=== PATIENT | female | born 1955 | race African-American/Black ===

== ENCOUNTER 2018-09-19 13:24 | Emergency (ER) | payer OTHER ==
[2018-09-19 13:28] VITALS: BP 128/84; PULSE 74; TEMP 98.1; BMI 30.2
--- NOTE | 2018-09-19 13:57 | PDOC ---
History of Present Illness - General Chief Complaint: Injury Stated Complaint: FALL / RT KNEE PAIN Time Seen by Provider: 09/19/18 13:37 - History of Present Illness Initial Comments: 09/19/18 13:56 65-year-old female with a past medical history significant for hypertension presents for evaluation of right knee pain after fall. She states she had bilateral hip replacements and spinal stenosis she's being evaluated for a spinal cord stimulator she has balance problems no dizziness or head injury. She states she fell last week mechanically O after tripping and then again today. She points to the anterior medial lateral aspect of the right knee as the areas of her discomfort. No radiation of symptoms. Past History - Past Medical History Allergies/Adverse Reactions: Allergies Allergy/AdvReac Type Severity Reaction Status Date / Time azithromycin Allergy Hives Verified 09/19/18 13:28 meperidine HCl [From Demerol] Allergy Hives Verified 09/19/18 13:28 Penicillins Allergy Hives Verified 09/19/18 13:28 diazepam [From Valium] AdvReac Mild Itching Verified 09/19/18 13:28 Home Medications: Ambulatory Orders Nifedipine ER [Procardia XL -] 60 mg PO DAILY #0 [id number] 07/31/14 Ibuprofen [Motrin -] 600 mg PO QID #28 tablet 06/11/16 Cardiac Disorders: Yes (mi) COPD: No HTN: Yes Hypercholesterolemia: Yes Other medical history: POOR BALANCE - Surgical History Cardiac Surgery: Yes (ppm) Orthopedic Surgery: Yes (rt hip replacement/rt knee sx) - Family Disease History Family Disease History: Heart Disease: Father - Suicide/Smoking/Psychosocial Hx Smoking Status: Yes Smoking History: Never smoked Have you smoked in the past 12 months: Yes Number of Cigarettes Smoked Daily: 5 Cigars Per Day: 2 'Breaking Loose' booklet given: 07/31/14 Hx Alcohol Use: No Drug/Substance Use Hx: No Substance Use Type: None Hx Substance Use Treatment: No Review of Systems - Review of Systems Musculoskeletal: Yes: Joint Pain *Physical Exam - Vital Signs Last Vital Signs Temp Pulse Resp BP Pulse Ox 98.1 F 74 18 128/84 99 09/19/18 13:25 09/19/18 13:25 09/19/18 13:25 09/19/18 13:25 09/19/18 13:25 - Physical Exam Comments: 09/19/18 13:56 Right knee skin color and temperature are normal. There is swelling. She has diffuse tenderness. Unable to evaluate stability testing secondary to apprehension. Range of motion 0-45 beyond that causes her pain. She is able to lift her heel up off the floor her extensor mechanism is intact. She has no gross sensorimotor deficits. Thighs and calves are soft and nontender. She is neurovascularly intact. Moderate Sedation - Procedure Monitoring Vital Signs: Procedure Monitoring Vital Signs Temperature 98.1 F 09/19/18 13:25 Pulse Rate 74 09/19/18 13:25 Respiratory Rate 18 09/19/18 13:25 Blood Pressure 128/84 09/19/18 13:25 O2 Sat by Pulse Oximetry (%) 99 09/19/18 13:25 ED Treatment Course - RADIOLOGY Radiology Studies Ordered: Category Date Time Status KNEE 3 POS-RIGHT [RAD] Stat Radiology 09/19/18 13:52 Ordered Medical Decision Making - Medical Decision Making 09/19/18 14:17 No indication of acute fracture on radiograph today. This is a knee contusion knee immobilizer weight-bear as tolerated with crutches follow-up with orthopedic surgery. *DC/Admit/Observation/Transfer Diagnosis at time of Disposition: Contusion of right knee - Discharge Dispostion Disposition: HOME Condition at time of disposition: Stable Decision to Admit order: No - Referrals Referrals: Argelia Dick FNP [Primary Care Provider] - Alec De Luna DO [Staff Physician] - - Patient Instructions Printed Discharge Instructions: Contusion Additional Instructions: You may weight-bear as tolerated with knee immobilizer and crutches. Please follow-up with orthopedic surgery in 2-3 days for further evaluation and treatment options. Tylenol as needed and directed for pain. Return to the emergency room for worsening symptoms. Again please come out of the knee immobilizer at home for hygiene, also to move her knee so does not get stiff. When you are walking he should use the knee immobilizer and cane or crutches as tolerated. - Post Discharge Activity
== END 2018-09-19 14:29 | disposition home or self-care (01) ==
LOC: JERFT 13:24
PROC: 2W3QXYZ Immobilization of Right Lower Leg using Other Device (ICD-10-PCS; principal; 2018-09-19)
DX: S80.01XA Contusion of right knee, initial encounter (principal); W18.39XA Other fall on same level, initial encounter; Z91.81 History of falling; Y93.89 Activity, other specified; Y92.89 Other specified places as the place of occurrence of the external cause; Y99.8 Other external cause status; R26.89 Other abnormalities of gait and mobility; I25.10 Atherosclerotic heart disease of native coronary artery without angina pectoris; E78.00 Pure hypercholesterolemia, unspecified; I10 Essential (primary) hypertension; I25.2 Old myocardial infarction; Z95.0 Presence of cardiac pacemaker; Z96.641 Presence of right artificial hip joint
CPT/HCPCS: 29530; 73562-TC-RT-FY; 99281-25

== ENCOUNTER 2019-08-11 08:19 | Emergency (ER) | payer OTHER ==
[2019-08-11 08:34] VITALS: BMI 29.9
[2019-08-11] MEDS ORDERED: KETOROLAC TROMETHAMINE 30 MG/1 ML VIAL IM ONE (09:31)
[2019-08-11] MEDS ORDERED: KETOROLAC TROMETHAMINE 30 MG/1 ML VIAL ONE (09:34)
--- NOTE | 2019-08-11 09:47 | PDOC ---
History of Present Illness - General Chief Complaint: Injury Stated Complaint: FALL/LOWER BACK PAIN Time Seen by Provider: 08/11/19 09:12 History Source: Patient Exam Limitations: Clinical Condition - History of Present Illness Initial Comments: 08/11/19 09:43 Patient with a history of cardiomyopathy on pacemaker, bilateral hip replacement with left hip replaced 2 years ago right hip 10 years ago with complaint of multiple falls since hip replacement being followed up by neurology and reported receiving trigger point injections for pain presented with complaint of worsening back pain status post fall yesterday. Denies hitting head or loss of consciousness from fall. Patient reported has not been using cane to walk even though she has been feeling imbalance with walking due to cane being too big for her. Patient reported she wanted a different referral to neurology as Dr. Luciano is not doing anything for her for her chronic pain. Denies saddle paresthesia, urinary or fecal incontinence. Patient report has been on Motrin for the past 2 years for chronic pain and starting to get gastritis from it. Patient reported she was told by neurologist Dr. Luciano that she will need back surgery but has not made an arrangement for her for the surgery. Denies any other symptoms Occurred: reports: yesterday Past History - Past Medical History Allergies/Adverse Reactions: Allergies Allergy/AdvReac Type Severity Reaction Status Date / Time azithromycin Allergy Hives Verified 08/11/19 08:28 meperidine HCl [From Demerol] Allergy Hives Verified 08/11/19 08:28 Penicillins Allergy Hives Verified 08/11/19 08:28 diazepam [From Valium] AdvReac Mild Itching Verified 08/11/19 08:28 Home Medications: Ambulatory Orders Ibuprofen [Motrin -] 600 mg PO QID #28 tablet 06/11/16 Cane 1 each MC DAILY #1 each 08/11/19 Lidocaine 5% Patch [Lidoderm -] 1 patch TP DAILY #7 patch 08/11/19 Nifedipine ER [Procardia XL -] 30 mg PO DAILY 08/11/19 Cardiac Disorders: Yes (mi) COPD: No HTN: Yes Hypercholesterolemia: Yes - Surgical History Cardiac Surgery: Yes (ppm) Neurologic Surgery: No (spinal nerve damage) Orthopedic Surgery: Yes (rt hip replacement/rt knee sx) - Psycho Social/Smoking Cessation Hx Smoking Status: Yes Smoking History: Never smoked Have you smoked in the past 12 months: Yes Number of Cigarettes Smoked Daily: 5 Cigars Per Day: 2 'Breaking Loose' booklet given: 07/31/14 Hx Alcohol Use: No Drug/Substance Use Hx: No Substance Use Type: None Hx Substance Use Treatment: No Review of Systems - Review of Systems Able to Perform ROS?: Yes Is the patient limited Turkmen proficient: No Constitutional: No: Chills, Fever, Malaise HEENTM: No: Symptoms Reported, See HPI, Eye Pain, Blurred Vision, Tearing, Recent change in vision, Double Vision, Cataracts, Ear Pain, Ocular Prothesis, Ear Discharge, Nose Pain, Nose Congestion, Tinnitus, Nose Bleeding, Hearing Loss , Throat Pain, Throat Swelling, Mouth Pain, Dental Problems, Difficulty Swallowing, Mouth Swelling, Other Respiratory: No: Symptoms reported, See HPI, Cough, Orthopnea, Shortness of Breath, SOB with Exertion, SOB at Rest, Stridor, Wheezing, Productive cough, Hemoptysis, Other Cardiac (ROS): No: Symptoms Reported, See HPI, Chest Pain, Edema, Irregular Heart Rate, Lightheadedness, Palpitations, Syncope, Chest Tightness, Other ABD/GI: No: Symptoms Reported : No: Symptoms Reported, Burning, Discharge, Frequency, Hematuria, Urgency Musculoskeletal: Yes: Symptoms Reported, See HPI, Back Pain, Joint Pain (pelvic pain). No: Gout, Joint Swelling, Muscle Pain, Muscle Weakness, Neck Pain, Joint Stiffness, Other Integumentary: No: Symptoms Reported, Bruising Neurological: No: Symptoms reported, See HPI, Numbness, Paresthesia All Other Systems: Reviewed and Negative *Physical Exam - Vital Signs Last Vital Signs Temp Pulse Resp BP Pulse Ox 98.4 F 61 20 174/135 H 98 08/11/19 08:31 08/11/19 08:31 08/11/19 08:31 08/11/19 08:31 08/11/19 08:31 - Physical Exam 08/11/19 10:00 GENERAL: Well developed, well nourished. Awake and alert in moderate acute distress. CARDIOVASCULAR: Regular rate and rhythm. No murmurs, rubs, or gallops. PULMONARY: No evidence of respiratory distress. Lungs clear to auscultation bilaterally. No wheezing, rales or rhonchi. MUSCULOSKELETAL : Moderate tenderness to lower lumbosacral spine of L3-S2 on bilateral sides. Mild midline tenderness. No radiculopathy. No bony deformities EXTREMITIES: No cyanosis. No clubbing. No edema. No calf tenderness. SKIN: Warm and dry. Normal capillary refill. No bruising or ecchymosis. NEUROLOGICAL: Alert, awake, appropriate. No motor deficits in the lower extremities. Gait is normal without ataxia. PSYCHIATRIC: Cooperative. Good eye contact. Appropriate mood and affect. General Appearance: Yes: Nourished, Appropriately Dressed, Apparent Distress, Moderate Distress ED Treatment Course - RADIOLOGY Radiology Studies Ordered: Category Date Time Status LUMBAR SPINE CT W/O CONTRAST [CT] Stat CT Scan 08/11/19 09:[address] WITHOUT CONTRAST [CT] Stat CT Scan 08/11/19 09:32 Ordered Medical Decision Making - Medical Decision Making 08/11/19 09:45 Patient with a history of cardiomyopathy on pacemaker, bilateral hip replacement with left hip replaced 2 years ago right hip 10 years ago with complaint of multiple falls since hip replacement being followed up by neurology and reported receiving trigger point injections for pain presented with complaint of worsening back pain status post fall yesterday. Patient reported has not been using cane to walk even though she has been feeling imbalance with walking due to cane being too big for her. Patient reported she wanted a different referral to neurology as Dr. Luciano is not doing anything for her for her chronic pain. Denies saddle paresthesia, urinary or fecal incontinence. Patient report has been on Motrin for the past 2 years for chronic pain and starting to get gastritis from it. Patient reported she was told by neurologist Dr. Luciano that she will need back surgery but has not made an arrangement for her for the surgery. Denies any other symptoms Exam significant for moderate tenderness to lower lumbosacral spine of L4-S2 in the midline with mild tenderness to bilateral pelvic area. No radiculopathy. Given patient's symptoms of persisting for and bilateral hip replacement, will do pelvic and lumbosacral CT to rule out fracture. Toradol 30 mg IM ordered for pain. Treat based on imaging results 08/11/19 11:19 Patient reported improvement in pain with Toradol. Patient pending pelvic and lumbosacral CT 08/11/19 12:[address] shows multiple bulging disc with no acute fracture or dislocation. Pelvic CT shows no acute fracture or damage to hardware from hip replacement. Patient with improvement in pain but still have some mild pain to back. Lidoderm given to patient. Patient given cane from pharmacy to help with ambulation and stable for discharge with neurosurgery follow-up Discharge - Discharge Information Problems reviewed: Yes Clinical Impression/Diagnosis: Lumbago with sciatica, unspecified side Qualifiers: Chronicity: acute Back pain laterality: bilateral Sciatica laterality: bilateral sciatica Qualified Code(s): M54.42 - Lumbago with sciatica, left side ; M54.41 - Lumbago with sciatica, right side Fall Qualifiers: Encounter type: initial encounter Qualified Code(s): W19.XXXA - Unspecified fall, initial encounter Condition: Improved Disposition: HOME - Admission No - Additional Discharge Information Prescriptions: Cane 1 each MC DAILY #1 each Lidocaine 5% Patch [Lidoderm -] 1 patch TP DAILY #7 patch - Follow up/Referral Referrals: Al Klein MD, [facility] [Staff Physician] - - Patient Discharge Instructions Patient Printed Discharge Instructions: DI for Back Pain With Sciatica Additional Instructions: Your pelvic and lower back CAT scan shows no acute fracture. Continue when home Motrin as needed for pain and use prescribed lidocaine patch to back for back pains as needed. Follow-up with referring neuro benefit specialist for evaluation of persistent lower back pain to spine and management as soon as possible. Use cane to help with ambulation to prevent further falls - Post Discharge Activity
[2019-08-11] MEDS ORDERED: FAMOTIDINE 20 MG TABLET PO ONE (11:46)
[2019-08-11] MEDS ORDERED: FAMOTIDINE 20 MG TABLET ONE (12:01)
[2019-08-11] MEDS ORDERED: LIDOCAINE 5% TOPICAL PATCH TP ONE (12:02)
[2019-08-11] MEDS ORDERED: LIDOCAINE 5% TOPICAL PATCH ONE (12:05)
[2019-08-11 13:13] VITALS: BP 143/82; PULSE 60; TEMP 97.2
== END 2019-08-11 12:05 | disposition home or self-care (01) ==
LOC: JER 08:19
PROC: 3E0233Z Introduction of Anti-inflammatory into Muscle, Percutaneous Approach (ICD-10-PCS; principal; 2019-08-11)
DX: M54.42 Lumbago with sciatica, left side (principal); I25.10 Atherosclerotic heart disease of native coronary artery without angina pectoris; I10 Essential (primary) hypertension; I25.2 Old myocardial infarction; I42.9 Cardiomyopathy, unspecified; Z95.0 Presence of cardiac pacemaker; Z88.0 Allergy status to penicillin; Z88.1 Allergy status to other antibiotic agents; Z88.8 Allergy status to other drugs, medicaments and biological substances
CPT/HCPCS: 72131-TC; 72192-TC; 99285-25

== ENCOUNTER 2020-08-29 12:21 | Emergency (ER) | payer OTHER ==
[2020-08-29 12:34] VITALS: BP 133/85; PULSE 72; TEMP 98; BMI 33.1
== END 2020-08-29 13:55 | disposition home or self-care (01) ==
LOC: JER 12:21
DX: R05 Cough (principal)
CPT/HCPCS: 71046-TC-FY; 87804; 99284-25; C9803; U0003

== ENCOUNTER 2021-04-24 10:58 | Emergency (ER) | payer OTHER ==
[2021-04-24 11:14] VITALS: TEMP 97.9; BMI 33.3
[2021-04-24 12:48] LABS: BASO % 0.6 % (0-2.0); EOS % 4.3 % (0-4.5); HEMATOCRIT 38.7 % (32.4-45.2); HEMOGLOBIN 12.8 GM/dL (10.7-15.3); LYMPH % 17.2 % (8-40); MCH 29.4 pg (25.7-33.7); MCHC 33.2 g/dl (32.0-36.0); MEAN CELL VOLUME 88.5 fl (80-96); MEAN PLT VOLUME 8.3 fl (7.5-11.1); MONO % 6.5 % (3.8-10.2); NEUT % 71.4 % (42.8-82.8); PLATELET COUNT 351 10^3/uL (134-434); RBC 4.37 M/mm3 (3.60-5.2); RDW 15.3 % (11.6-15.6); WHITE BLOOD COUNT 9.1 K/mm3 (4.0-10.0)
[2021-04-24 12:57] LABS: PH,URINE 5.5 (5.0-8.0); URINE APPEARANCE CLEAR; URINE BILIRUBIN NEGATIVE (NEGATIVE); URINE COLOR YELLOW; URINE GLUCOSE (UA) NEGATIVE (NEGATIVE); URINE KETONE NEGATIVE (NEGATIVE); URINE LEUK ESTERASE NEGATIVE (NEGATIVE); URINE NITRITE NEGATIVE (NEGATIVE); URINE PROTEIN TRACE (NEGATIVE); URINE UROBILINOGEN 0.2 mg/dL (0.2-1.0)
[2021-04-24 13:03] LABS: INR 1.23 (0.83-1.09); PROTHROMBIN TIME (PATIENT) 13.8 SEC (9.7-13.0)
[2021-04-24 13:05] LABS: CHLORIDE 108 mmol/L (98-107); SODIUM 141 mmol/L (136-145)
[2021-04-24 13:07] LABS: CALCIUM 9.3 mg/dL (8.5-10.1)
[2021-04-24 13:08] LABS: ALBUMIN 3.1 g/dl (3.4-5.0); ANION GAP 7 MMOL/L (8-16); BLOOD UREA NITROGEN 14.1 mg/dL (7-18); CO2 27 mmol/L (21-32); GLUCOSE,RANDOM 87 mg/dL (74-106)
[2021-04-24 13:10] LABS: URIC ACID 3.6 mg/dL (2.6-7.2)
[2021-04-24 13:11] LABS: CREATININE 0.9 mg/dL (0.55-1.3); SGOT/AST 47 U/L (15-37); SGPT/ALT 61 U/L (13-61)
[2021-04-24 13:12] LABS: BILIRUBIN,TOTAL 0.4 mg/dL (0.2-1)
[2021-04-24 13:13] LABS: TOT PROT 8.3 g/dl (6.4-8.2)
[2021-04-24 13:14] LABS: ALK PHOS 154 U/L (45-117)
[2021-04-24 13:16] LABS: N-TERMINAL BNP 103.3 pg/ml (5-125)
[2021-04-24 16:07] VITALS: BP 128/79; PULSE 89
== END 2021-04-24 16:07 | disposition home or self-care (01) ==
LOC: JER 10:58
DX: M71.20 Synovial cyst of popliteal space [Baker], unspecified knee (principal)
CPT/HCPCS: 36415; 73562-TC-RT-FY; 80053; 81003; 82550; 83880; 84439; 84443; 84484; 84550; 85025; 85610; 87086; 93005; 93010; 93971-TC; 99284-25

== ENCOUNTER 2021-08-06 10:11 | Emergency (ER) | payer OTHER ==
[2021-08-06 10:23] VITALS: BP 154/84; PULSE 75; TEMP 97.8; BMI 29.9
[2021-08-06] MEDS ORDERED: KETOROLAC TROMETHAMINE 30 MG/1 ML VIAL IM ONE (11:17)
[2021-08-06] MEDS ORDERED: KETOROLAC TROMETHAMINE 30 MG/1 ML VIAL ONE (11:25)
[2021-08-06] MEDS ORDERED: DOXYCYCLINE HYCLATE 100 MG CAPSULE PO ONE ×2 (14:34→15:26)
== END 2021-08-06 15:33 | disposition home or self-care (01) ==
LOC: JER 10:11
PROC: 3E0233Z Introduction of Anti-inflammatory into Muscle, Percutaneous Approach (ICD-10-PCS; principal; 2021-08-06)
DX: M25.561 Pain in right knee (principal)
CPT/HCPCS: 73562-TC-RT-FY; 93971-TC; 96372; 99284-25

== ENCOUNTER 2021-09-27 04:16 | Day surgery (SDC) | payer OTHER ==
[2021-09-26 08:43] VITALS: BMI 30.1
[2021-09-27] MEDS ORDERED: DEXAMETHASONE SOD PHOSPHATE 10 MG/1 ML VIAL ONE (07:26)
[2021-09-27] MEDS ORDERED: LIDOCAINE HCL/PF 1% SDV 5ML VIAL ONE (07:26)
[2021-09-27] MEDS ORDERED: IOHEXOL 180 MG/1 ML ML IJ ONE (13:10)
[2021-09-27] MEDS ORDERED: LIDOCAINE 1% P/F 10 MG/ML VIAL INF ONE (13:12)
[2021-09-27] MEDS ORDERED: DEXAMETHASONE SOD PHOSPHATE 4 MG/1 ML VIAL IVPUSH ONE (13:14)
[2021-09-27 13:42] VITALS: BP 131/68; PULSE 60; TEMP 97.8
== END 2021-09-27 14:09 | disposition home or self-care (01) ==
LOC: JASU-SURG 04:16
PROVIDERS: ATTEND Pain Medicine Pain Medicine
PROC: 3E0R33Z Introduction of Anti-inflammatory into Spinal Canal, Percutaneous Approach (ICD-10-PCS; 2021-09-27)
PROC: 3E0R3BZ Introduction of Anesthetic Agent into Spinal Canal, Percutaneous Approach (ICD-10-PCS; principal; 2021-09-27 13:00)
DX: M54.16 Radiculopathy, lumbar region (principal)
CPT/HCPCS: 76000-TC-FY; J1100

== ENCOUNTER 2022-08-27 10:03 | Emergency (ER) | payer OTHER ==
[2022-08-27 10:31] VITALS: RESP 18; TEMP 98.1; BMI 30.7
[2022-08-27 12:55] VITALS: BP 154/94; PULSE 60
== END 2022-08-27 12:56 | disposition home or self-care (01) ==
LOC: JER 10:03
DX: M25.552 Pain in left hip (principal)
CPT/HCPCS: 72170-TC-FY; 73502-TC-LT-FY; 73552-TC-LT-FY; 99285-25

== ENCOUNTER 2022-10-06 10:59 | Inpatient (IN) | payer OTHER ==
[2022-10-06 11:18] VITALS: BMI 29.9
[2022-10-06] MEDS ORDERED: METHOCARBAMOL 500 MG TABLET PO ONE (11:49)
[2022-10-06] MEDS ORDERED: ACETAMINOPHEN 500 MG TABLET (FP) PO ONE (11:49)
[2022-10-06] MEDS ORDERED: LIDOCAINE 5% TOPICAL PATCH TP ONE (11:49)
[2022-10-06] MEDS ORDERED: morphine CARPU-JECT 4 MG/1 ML DISP.SYRIN IVPUSH ONE ×2 (11:56→14:00)
[2022-10-06] MEDS ORDERED: LIDOCAINE 5% TOPICAL PATCH ONE (12:02)
[2022-10-06] MEDS ORDERED: morphine SULFATE 4 MG/ML VIAL ONE ×2 (12:02→15:46)
[2022-10-06 12:51] LABS: BASO % 0.7 % (0-2.0); EOS % 2.3 % (0-4.5); HEMATOCRIT 35.8 % (32.4-45.2); HEMOGLOBIN 11.7 GM/dL (10.7-15.3); LYMPH % 28.1 % (8-40); MCH 28.1 pg (25.7-33.7); MCHC 32.8 g/dl (32.0-36.0); MEAN CELL VOLUME 85.7 fl (80-96); MEAN PLT VOLUME 7.4 fl (7.5-11.1); MONO % 13.1 % (3.8-10.2); NEUT % 55.8 % (42.8-82.8); PLATELET COUNT 325 10^3/uL (134-434); RBC 4.18 M/mm3 (3.60-5.2); RDW 15.8 % (11.6-15.6); WHITE BLOOD COUNT 6.6 K/mm3 (4.0-10.0)
[2022-10-06 13:08] LABS: ALBUMIN 3.6 g/dl (3.4-5.0); CALCIUM 9.4 mg/dL (8.5-10.1)
[2022-10-06 13:09] LABS: BLOOD UREA NITROGEN 15.7 mg/dL (7-18)
[2022-10-06 13:12] LABS: CREATININE 0.8 mg/dL (0.55-1.3); ERYTHROCYTE SEDIMENTATION RATE 42 mm/hr (0-30)
[2022-10-06 13:13] LABS: BILIRUBIN,TOTAL 0.7 mg/dL (0.2-1); TOT PROT 8.3 g/dl (6.4-8.2)
[2022-10-06] MEDS ORDERED: KETOROLAC TROMETHAMINE 15 MG/ML VIAL IVPUSH ONE (14:52)
[2022-10-06] MEDS ORDERED: KETOROLAC TROMETHAMINE 15 MG/ML VIAL ONE ×2 (15:46→21:49)
[2022-10-06] MEDS ORDERED: NIFEdipine E.R. 30 MG TABLET PO ONE (20:54)
[2022-10-06] MEDS ORDERED: DEXAMETHASONE SOD PHOSPHATE 4 MG/1 ML VIAL ONE (20:54)
[2022-10-06] MEDS: NIFEdipine E.R. 30 MG TABLET PO SCH (21:03)
[2022-10-06] MEDS: DEXAMETHASONE SOD PHOSPHATE 4 MG/1 ML VIAL IVPUSH SCH (21:03)
[2022-10-06] MEDS: KETOROLAC TROMETHAMINE 15 MG/ML VIAL IVPUSH PRN (21:52)
[2022-10-06] MEDS ORDERED: LIDOCAINE PATCH REMOVAL MC ONE (22:00)
[2022-10-07] MEDS ORDERED: PREGABALIN 25 MG CAPSULE ONE (01:51)
[2022-10-07] MEDS: PREGABALIN 25 MG CAPSULE PO SCH ×3 (02:17→21:41)
[2022-10-07] MEDS: DEXAMETHASONE SOD PHOSPHATE 4 MG/1 ML VIAL IVPUSH SCH ×2 (04:28→09:28)
[2022-10-07] MEDS: ENOXAPARIN NA (PORCINE) 40 MG/0.4 ML DISP.SYRIN SQ SCH (09:28)
[2022-10-07] MEDS: NIFEdipine E.R. 30 MG TABLET PO SCH (09:28)
[2022-10-07 10:19] LABS: BASO % 0.2 % (0-2.0); EOS % 0.2 % (0-4.5); HEMATOCRIT 34.4 % (32.4-45.2); HEMOGLOBIN 11.4 GM/dL (10.7-15.3); LYMPH % 13.1 % (8-40); MCHC 33.1 g/dl (32.0-36.0); MEAN CELL VOLUME 84.6 fl (80-96); MEAN PLT VOLUME 7.7 fl (7.5-11.1); MONO % 0.8 % (3.8-10.2); NEUT % 85.7 % (42.8-82.8); PLATELET COUNT 327 10^3/uL (134-434); RBC 4.07 M/mm3 (3.60-5.2); RDW 15.5 % (11.6-15.6); WHITE BLOOD COUNT 6.6 K/mm3 (4.0-10.0)
[2022-10-07 10:40] LABS: ALBUMIN 3.3 g/dl (3.4-5.0); BLOOD UREA NITROGEN 15.4 mg/dL (7-18); MAGNESIUM 2.1 mg/dL (1.8-2.4)
[2022-10-07 10:43] LABS: CREATININE 0.8 mg/dL (0.55-1.3); PHOSPHOROUS 2.1 mg/dL (2.5-4.9)
[2022-10-07 10:45] LABS: BILIRUBIN,TOTAL 0.3 mg/dL (0.2-1); TOT PROT 7.9 g/dl (6.4-8.2)
[2022-10-07] MEDS ORDERED: PANTOPRAZOLE 40 MG TABLET PO ONE (12:54)
[2022-10-07] MEDS: LIDOCAINE 5% TOPICAL PATCH TP SCH (15:26)
[2022-10-07] MEDS ORDERED: NAPH,MB-DB/K PH,MBDB POWDER PACKET PO ONE (17:16)
[2022-10-07] MEDS: KETOROLAC TROMETHAMINE 15 MG/ML VIAL IVPUSH PRN (20:26)
[2022-10-07] MEDS: LIDOCAINE PATCH REMOVAL MC SCH (21:42)
[2022-10-08] MEDS ORDERED: POLYETHYLENE GLYCOL (HEALTHYLAX) 3350 17 GM PACKET PO SCH (06:45)
[2022-10-08] MEDS: PREGABALIN 25 MG CAPSULE PO SCH ×2 (09:26→21:35)
[2022-10-08] MEDS: ENOXAPARIN NA (PORCINE) 40 MG/0.4 ML DISP.SYRIN SQ SCH (09:26)
[2022-10-08] MEDS: NIFEdipine E.R. 30 MG TABLET PO SCH (09:26)
[2022-10-08] MEDS: LIDOCAINE 5% TOPICAL PATCH TP SCH (09:26)
[2022-10-08 09:59] LABS: HEMATOCRIT 35.3 % (32.4-45.2); HEMOGLOBIN 11.6 GM/dL (10.7-15.3); MCH 27.9 pg (25.7-33.7); MCHC 32.7 g/dl (32.0-36.0); MEAN CELL VOLUME 85.3 fl (80-96); MEAN PLT VOLUME 7.7 fl (7.5-11.1); PLATELET COUNT 339 10^3/uL (134-434); RBC 4.14 M/mm3 (3.60-5.2); RDW 15.5 % (11.6-15.6); WHITE BLOOD COUNT 13.4 K/mm3 (4.0-10.0)
[2022-10-08] MEDS ORDERED: predniSONE 20 MG TABLET (UD) PO ONE (10:00)
[2022-10-08 10:51] LABS: ALBUMIN 3.2 g/dl (3.4-5.0); BLOOD UREA NITROGEN 19.5 mg/dL (7-18); MAGNESIUM 2.3 mg/dL (1.8-2.4)
[2022-10-08 10:54] LABS: CREATININE 0.8 mg/dL (0.55-1.3); PHOSPHOROUS 2.6 mg/dL (2.5-4.9); TOT PROT 7.6 g/dl (6.4-8.2)
[2022-10-08 10:56] LABS: BILIRUBIN,TOTAL 0.4 mg/dL (0.2-1)
[2022-10-08 15:00] VITALS: RESP 18
[2022-10-08] MEDS: ACETAMINOPHEN 325 MG TABLET (FP) PO PRN ×2 (17:08→21:35)
[2022-10-08] MEDS: LIDOCAINE PATCH REMOVAL MC SCH (21:36)
[2022-10-09] MEDS: LIDOCAINE 5% TOPICAL PATCH TP SCH (09:58)
[2022-10-09] MEDS: ENOXAPARIN NA (PORCINE) 40 MG/0.4 ML DISP.SYRIN SQ SCH (09:58)
[2022-10-09] MEDS: PREGABALIN 25 MG CAPSULE PO SCH (09:59)
[2022-10-09] MEDS: NIFEdipine E.R. 30 MG TABLET PO SCH (09:59)
[2022-10-09 10:04] LABS: HEMATOCRIT 35.6 % (32.4-45.2); HEMOGLOBIN 11.6 GM/dL (10.7-15.3); MCH 27.7 pg (25.7-33.7); MCHC 32.5 g/dl (32.0-36.0); MEAN CELL VOLUME 85.2 fl (80-96); MEAN PLT VOLUME 7.8 fl (7.5-11.1); PLATELET COUNT 338 10^3/uL (134-434); RBC 4.18 M/mm3 (3.60-5.2); RDW 15.6 % (11.6-15.6); WHITE BLOOD COUNT 11.6 K/mm3 (4.0-10.0)
[2022-10-09 10:32] LABS: BLOOD UREA NITROGEN 16.2 mg/dL (7-18); CALCIUM 8.9 mg/dL (8.5-10.1); MAGNESIUM 2.4 mg/dL (1.8-2.4)
[2022-10-09 10:33] LABS: ALBUMIN 3.2 g/dl (3.4-5.0)
[2022-10-09 10:35] LABS: PHOSPHOROUS 2.3 mg/dL (2.5-4.9)
[2022-10-09 10:37] LABS: TOT PROT 7.6 g/dl (6.4-8.2)
[2022-10-09 10:38] LABS: BILIRUBIN,TOTAL 0.4 mg/dL (0.2-1)
[2022-10-09 10:39] LABS: CREATININE 0.8 mg/dL (0.55-1.3)
[2022-10-09 11:09] VITALS: BP 138/72; PULSE 68; TEMP 98.6
[2022-10-09] MEDS ORDERED: BENZOCAINE/MENTH/CETYLPYRD CL 1 EACH LOZENGE MM PRN (11:29)
== END 2022-10-09 13:55 | disposition home or self-care (01) | DRG 551 ==
LOC: JER 10:59 → JERBED 14:18 → J5S 10-07 04:19 → J6S 10-07 20:44 → OBSVTOIN 10-08 15:13
PROVIDERS: ADMIT Internal Medicine; ATTEND Internal Medicine
DX: M54.16 Radiculopathy, lumbar region (principal); U07.1 COVID-19; M54.17 Radiculopathy, lumbosacral region; M47.897 Other spondylosis, lumbosacral region; I10 Essential (primary) hypertension; Z96.643 Presence of artificial hip joint, bilateral; Z95.0 Presence of cardiac pacemaker; R26.2 Difficulty in walking, not elsewhere classified
CPT/HCPCS: 0241U-QW; 36415; 72131-TC; 72192-TC; 80053; 83735; 84100; 85025; 85027; 85651; 86140; 93005; 93010; 97116-GP; 97162-GP; 99285-25; G0378

== ENCOUNTER 2022-11-04 04:13 | Day surgery (SDC) | payer OTHER ==
[2022-11-03 11:04] VITALS: BMI 30.1
[~2022-11-04 04:13] MED LIST: DEXAMETHASONE SOD PHOSPHATE 10 MG/1 ML VIAL IM ONE; IOHEXOL 180 MG/1 ML ML IJ ONE; LIDOCAINE HCL 1% PRESERVATIVE FREE - 30ML VIAL CAUD ONE
[2022-11-04] MEDS ORDERED: LIDOCAINE HCL/PF 1% SDV 5ML VIAL ONE (07:15)
[2022-11-04] MEDS ORDERED: DEXAMETHASONE SOD PHOSPHATE 10 MG/1 ML VIAL ONE (07:15)
[2022-11-04 10:08] VITALS: RESP 18
[2022-11-04] MEDS ORDERED: LIDOCAINE HCL 1% PRESERVATIVE FREE - 30ML VIAL CAUD ONE (10:39)
[2022-11-04] MEDS ORDERED: DEXAMETHASONE SOD PHOSPHATE 10 MG/1 ML VIAL IM ONE (10:39)
[2022-11-04] MEDS ORDERED: IOHEXOL 180 MG/1 ML ML IJ ONE (10:39)
[2022-11-04 11:13] VITALS: TEMP 97.8
[2022-11-04 11:40] VITALS: BP 129/81; PULSE 67
[2022-11-04] MEDS ORDERED: ACETAMINOPHEN 500 MG TABLET (FP) PO PRN (12:04)
== END 2022-11-04 11:25 | disposition home or self-care (01) ==
LOC: JASU-SURG 04:13
PROVIDERS: ATTEND Pain Medicine Pain Medicine
PROC: 3E0R3BZ Introduction of Anesthetic Agent into Spinal Canal, Percutaneous Approach (ICD-10-PCS; 2022-11-04)
PROC: 3E0R33Z Introduction of Anti-inflammatory into Spinal Canal, Percutaneous Approach (ICD-10-PCS; principal; 2022-11-04 11:15)
DX: M54.16 Radiculopathy, lumbar region (principal)
CPT/HCPCS: 76000-TC-FY; J1100

== ENCOUNTER 2022-11-12 13:44 | Emergency (ER) | payer OTHER ==
[2022-11-12 13:52] VITALS: BP 119/65; PULSE 82; RESP 20; TEMP 97.7; BMI 31.6
== END 2022-11-12 15:45 | disposition home or self-care (01) ==
LOC: JERFT 13:44
DX: M79.672 Pain in left foot (principal); M77.32 Calcaneal spur, left foot
CPT/HCPCS: 73610-TC-LT-FY; 73630-TC-LT; 99283-25

== ENCOUNTER 2022-11-28 04:12 | Day surgery (SDC) | payer OTHER ==
[2022-11-27 12:23] VITALS: BMI 29.9
[2022-11-28] MEDS ORDERED: TRIAMCINOLONE ACET 40MG/1ML VIAL ONE (07:24)
[2022-11-28] MEDS ORDERED: BUPIVACAINE HCL/PF 0.5% (5MG/ML) 10 ML VIAL ONE (07:24)
[2022-11-28] MEDS ORDERED: LIDOCAINE HCL/PF 1% SDV 5ML VIAL ONE (07:24)
[2022-11-28] MEDS ORDERED: LIDOCAINE HCL 1% PRESERVATIVE FREE - 30ML VIAL IJ ONE (11:44)
[2022-11-28] MEDS ORDERED: TRIAMCINOLONE ACETONIDE 40 MG/ML 10 ML VIAL IJ ONE (11:45)
[2022-11-28] MEDS ORDERED: BUPIVACAINE HCL/PF 0.5% (5MG/ML) 10 ML VIAL IJ ONE (11:45)
[2022-11-28] MEDS ORDERED: IOHEXOL 180 MG/1 ML ML IJ ONE (11:46)
[2022-11-28 12:46] VITALS: TEMP 97.8
[2022-11-28 13:17] VITALS: BP 131/73; PULSE 74; RESP 20
[2022-11-28] MEDS ORDERED: ACETAMINOPHEN 500 MG TABLET (FP) PO PRN (16:39)
== END 2022-11-28 13:12 | disposition home or self-care (01) ==
LOC: JASU-SURG 04:12
PROVIDERS: ATTEND Pain Medicine Pain Medicine
PROC: 3E0U3BZ Introduction of Anesthetic Agent into Joints, Percutaneous Approach (ICD-10-PCS; 2022-11-28)
PROC: 3E0U33Z Introduction of Anti-inflammatory into Joints, Percutaneous Approach (ICD-10-PCS; principal; 2022-11-28 12:45)
DX: M53.3 Sacrococcygeal disorders, not elsewhere classified (principal)
CPT/HCPCS: 76000-TC-FY

== ENCOUNTER 2023-02-19 16:40 | Emergency (ER) | payer OTHER ==
[2023-02-19 16:47] VITALS: RESP 18; BMI 31.6
[2023-02-19] MEDS ORDERED: SODIUM CHLORIDE 0.9% 500 ML INFUS.BAG IV ONE (18:26)
[2023-02-19] MEDS ORDERED: ACETAMINOPHEN 1000 MG/100 ML BAG IVPB ONE (18:26)
[2023-02-19] MEDS ORDERED: ACETAMINOPHEN INJECTION 100 ML IVPB ONE (18:29)
[2023-02-19 18:33] LABS: EOS % 1.9 % (0-4.5); HEMATOCRIT 35.7 % (32.4-45.2); HEMOGLOBIN 11.1 GM/dL (10.7-15.3); LYMPH % 30.3 % (8-40); MCH 27.1 pg (25.7-33.7); MCHC 31.2 g/dl (32.0-36.0); MEAN CELL VOLUME 86.8 fl (80-96); MEAN PLT VOLUME 7.4 fl (7.5-11.1); MONO % 8.7 % (3.8-10.2); NEUT % 58.1 % (42.8-82.8); PLATELET COUNT 366 10^3/uL (134-434); RBC 4.11 M/mm3 (3.60-5.2); RDW 16.3 % (11.6-15.6); WHITE BLOOD COUNT 8.4 K/mm3 (4.0-10.0)
[2023-02-19 18:38] LABS: PH,URINE 5.5 (5.0-8.0); URINE APPEARANCE CLEAR; URINE BILIRUBIN NEGATIVE (NEGATIVE); URINE COLOR YELLOW; URINE GLUCOSE (UA) NEGATIVE (NEGATIVE); URINE KETONE NEGATIVE (NEGATIVE); URINE LEUK ESTERASE NEGATIVE (NEGATIVE); URINE NITRITE NEGATIVE (NEGATIVE); URINE PROTEIN NEGATIVE (NEGATIVE); URINE UROBILINOGEN 0.2 mg/dL (0.2-1.0)
[2023-02-19 18:43] LABS: INR 1.1 (0.83-1.09); PROTHROMBIN TIME (PATIENT) 12.8 SEC (9.7-13.0)
[2023-02-19 18:46] LABS: ACTIVATED PTT 29.3 SECONDS (25.2-36.5)
[2023-02-19 18:57] LABS: POTASSIUM 3.6 mmol/L (3.5-5.1)
[2023-02-19 18:59] LABS: CALCIUM 8.7 mg/dL (8.5-10.1)
[2023-02-19 19:00] LABS: ALBUMIN 3.4 g/dl (3.4-5.0); BLOOD UREA NITROGEN 17.7 mg/dL (7-18); MAGNESIUM 2.4 mg/dL (1.8-2.4)
[2023-02-19 19:05] LABS: BILIRUBIN,TOTAL 0.2 mg/dL (0.2-1); TOT PROT 7.4 g/dl (6.4-8.2)
[2023-02-19 19:46] VITALS: BP 128/75; PULSE 60; TEMP 97.6
== END 2023-02-19 21:33 | disposition home or self-care (01) ==
LOC: JER 16:40
PROC: 3E033NZ Introduction of Analgesics, Hypnotics, Sedatives into Peripheral Vein, Percutaneous Approach (ICD-10-PCS; principal; 2023-02-19)
DX: R07.9 Chest pain, unspecified (principal); R51.9 Headache, unspecified; R05.9 Cough, unspecified; R42 Dizziness and giddiness; R06.02 Shortness of breath; R50.9 Fever, unspecified; M54.9 Dorsalgia, unspecified; R09.81 Nasal congestion; R53.83 Other fatigue; Z20.822 Contact with and (suspected) exposure to COVID-19
CPT/HCPCS: 0241U-QW; 36415; 80053; 81003; 82550; 83735; 84484; 85025; 85610; 85730; 87086; 93005; 93010; 99285-25

== ENCOUNTER 2023-08-17 10:42 | Emergency (ER) | payer OTHER ==
[2023-08-17 10:48] VITALS: BP 138/100; PULSE 59; RESP 16; TEMP 98.5; BMI 31.8
== END 2023-08-17 12:36 | disposition home or self-care (01) ==
LOC: JER 10:42
DX: R06.02 Shortness of breath (principal); R05.9 Cough, unspecified; J45.21 Mild intermittent asthma with (acute) exacerbation; Z20.822 Contact with and (suspected) exposure to COVID-19
CPT/HCPCS: 0241U-QW; 71046-TC-FY; 93005; 93010; 99285-25

== ENCOUNTER 2024-02-25 13:04 | Emergency (ER) | payer OTHER ==
[2024-02-25 13:16] VITALS: PULSE 60; BMI 30.9
[2024-02-25] MEDS ORDERED: ACETAMINOPHEN INJECTION 100 ML ONE (14:07)
[2024-02-25] MEDS ORDERED: KETOROLAC TROMETHAMINE 30 MG/1 ML VIAL ONE (14:07)
[2024-02-25 14:47] LABS: URINE APPEARANCE CLEAR; URINE BILIRUBIN NEGATIVE (NEGATIVE); URINE COLOR YELLOW; URINE GLUCOSE (UA) NEGATIVE (NEGATIVE); URINE KETONE NEGATIVE (NEGATIVE); URINE LEUK ESTERASE NEGATIVE (NEGATIVE); URINE NITRITE NEGATIVE (NEGATIVE); URINE PROTEIN NEGATIVE (NEGATIVE); URINE UROBILINOGEN 0.2 mg/dL (0.2-1.0)
[2024-02-25 15:25] LABS: BASO % 0.5 % (0-2.0); EOS % 1.8 % (0-4.5); HEMATOCRIT 37.5 % (32.4-45.2); HEMOGLOBIN 12.5 GM/dL (10.7-15.3); LYMPH % 42.2 % (8-40); MCHC 33.3 g/dl (32.0-36.0); MEAN CELL VOLUME 87.1 fl (80-96); MONO % 9.7 % (3.8-10.2); NEUT % 45.8 % (42.8-82.8); PLATELET COUNT 335 10^3/uL (134-434); RBC 4.31 M/mm3 (3.60-5.2); RDW 15.3 % (11.6-15.6); WHITE BLOOD COUNT 7.3 K/mm3 (4.0-10.0)
[2024-02-25] MEDS: ACETAMINOPHEN 1000 MG/100 ML BAG IVPB ONE (15:27)
[2024-02-25] MEDS: KETOROLAC TROMETHAMINE 30 MG/1 ML VIAL IVPUSH ONE (15:27)
[2024-02-25] MEDS: KETOROLAC TROMETHAMINE 30 MG/1 ML VIAL IM ONE (15:27)
[2024-02-25 15:45] LABS: POTASSIUM 3.8 mmol/L (3.5-5.1)
[2024-02-25 15:47] LABS: CALCIUM 9.1 mg/dL (8.5-10.1)
[2024-02-25 15:48] LABS: ALBUMIN 3.7 g/dl (3.4-5.0); MAGNESIUM 2.2 mg/dL (1.8-2.4)
[2024-02-25 15:51] LABS: CREATININE 0.9 mg/dL (0.55-1.3); PHOSPHOROUS 2.5 mg/dL (2.5-4.9)
[2024-02-25 15:52] LABS: BILIRUBIN,TOTAL 0.3 mg/dL (0.2-1)
[2024-02-25 15:53] LABS: TOT PROT 8.4 g/dl (6.4-8.2)
[2024-02-25 16:05] LABS: ACTIVATED PTT 26.7 SECONDS (25.2-36.5); INR 0.98 (0.83-1.09); PROTHROMBIN TIME (PATIENT) 11.3 SEC (9.7-13.0)
[2024-02-25 17:39] VITALS: BP 144/73; RESP 16; TEMP 97.5
== END 2024-02-25 17:40 | disposition home or self-care (01) ==
LOC: JER 13:04
PROC: 3E033NZ Introduction of Analgesics, Hypnotics, Sedatives into Peripheral Vein, Percutaneous Approach (ICD-10-PCS; principal; 2024-02-25)
PROC: 3E0333Z Introduction of Anti-inflammatory into Peripheral Vein, Percutaneous Approach (ICD-10-PCS; 2024-02-25)
DX: M54.41 Lumbago with sciatica, right side (principal); M54.42 Lumbago with sciatica, left side; G89.29 Other chronic pain; R20.0 Anesthesia of skin; R20.2 Paresthesia of skin; R07.9 Chest pain, unspecified
CPT/HCPCS: 36415; 71045-TC-FY; 80053; 81003; 83735; 84100; 84484; 85025; 85610; 85730; 87086; 93005; 93010; 96374; 96375; 99285-25; J0131